=== PATIENT | female | born 1975 | race Caucasian/White ===

== ENCOUNTER 2022-01-08 07:36 | Day surgery (SDC) | payer BC ==
[2022-01-05 13:51] VITALS: BMI 21.7
[~2022-01-08 07:36] MED LIST: LACTATED RINGERS 1,000 ML IV SCH
[2022-01-08 09:02] VITALS: TEMP 98.2
[2022-01-08] MEDS ORDERED: LIDOCAINE 1% (10MG/ML) FOR IV START INTRADERMA ONE (09:06)
[2022-01-08] MEDS ORDERED: PROPOFOL 10 MG/ML 20 ML VIAL IV ONE (09:39)
--- NOTE | 2022-01-08 10:00 | P.PCN ---
Date of Procedure: 01/08/22 Procedure(s) Performed: BRIEF HISTORY: Patient is a 46-year-old pleasant female scheduled for an elective colonoscopy as a part of screening for colon cancer and strong family history of colon cancer. Her maternal aunt, maternal uncle and first cousin and maternal side of diagnosis of colon cancer in the 50s and 60s respectively. PROCEDURE PERFORMED: Colonoscopy. PREOPERATIVE DIAGNOSIS: Screening for colon cancer and strong family history of colon cancer. IV sedation per Anesthesia. PROCEDURE: After informed consent was obtained, the patient, was brought into the endoscopy unit. IV sedation was administered by Anesthesia under continuous monitoring. Digital rectal examination was normal. Initially the Olympus CF-160 flexible video colonoscope was then inserted in the rectum, gradually advanced into the cecum without any difficulty. Careful examination was performed as the scope was gradually being withdrawn. Ileocecal valve and the appendiceal orifice were visualized and appeared normal. Prep was excellent. Mucosa of the cecum, ascending colon, transverse colon, descending colon, sigmoid colon, and rectum appeared normal. Retroflexion was performed in the rectum and no lesions were seen. The patient tolerated the procedure well. IMPRESSION: Normal-appearing colon from rectum to cecum with no evidence of colorectal neoplasia. RECOMMENDATIONS: Findings of this examination were discussed with the patient as well as her family. She was advised to have a repeat screening colonoscopy every 5 years because of the family history of colon cancer..
[2022-01-08] MEDS ORDERED: IV FLUID CONTINUATION 1,000 ML IV ONE ×2 (10:03)
[2022-01-08 10:15] VITALS: BP 131/86; PULSE 52; RESP 16
== END 2022-01-08 10:47 | disposition home or self-care (01) ==
LOC: ORWHC2ENDO 07:36
PROVIDERS: ATTEND Internal Medicine Gastroenterology
DX: Z12.11 Encounter for screening for malignant neoplasm of colon (principal); Z80.0 Family history of malignant neoplasm of digestive organs; Z79.899 Other long term (current) drug therapy; F41.9 Anxiety disorder, unspecified; Z88.0 Allergy status to penicillin
CPT/HCPCS: 81025; J2704; G0121; 45378